=== PATIENT | female | born 1945 | race Caucasian/White ===

== ENCOUNTER → 2018-06-28 | Outpatient (CLI) | payer MEDICARE, OTHER | LOC: M.ULTRA 06-14 14:48 → M.RAD 08:37 | DX: Z12.31 Encounter for screening mammogram for malignant neoplasm of breast (principal); Z00.01 Encounter for general adult medical examination with abnormal findings; E04.1 Nontoxic single thyroid nodule; M81.0 Age-related osteoporosis without current pathological fracture; Z78.0 Asymptomatic menopausal state; Z90.89 Acquired absence of other organs ==

== ENCOUNTER → 2018-07-03 | Outpatient (CLI) | payer MEDICARE, OTHER | LOC: M.RAD 13:17 | DX: N63.24 Unspecified lump in the left breast, lower inner quadrant (principal); R92.2 Inconclusive mammogram ==

== ENCOUNTER → 2018-07-11 | Outpatient (CLI) | payer MEDICARE, OTHER ==
[~2018-07-11] MED LIST: ASPIRIN81 M2 PO; CALCIUM500 MG PO; CITRACAL + D M1 EACH PO; COREG6.25 MG PO; FISH OIL 1,001000 M2 PO; LIPITOR80 MG PO; LISINOPRIL40 MG PO; MAXZIDE-25 MG1 EACH PO; NORVASC10 MG PO; OMEPRAZOLE 20 M20 M1 PO; VITAMIN D1000 UNI1 PO
--- NOTE | 2018-07-21 16:09 | PATH ---
[address] [address] PATHOLOGY RPT PROCEDURE Name: АННА STEWART Room: [facility] HTIAGO Hubbard#: [id number] Admission: 07/11/18 Date of : 47 Discharge: Report #: [id number] Path Case #: [id number] [facility] Accession Number: [id number] . 01 Material submitted: . PART A: LEFT BREAST PART B: LEFT AXILLA NODE . 01 Clinical history: . A. 1.6 x 1.3 x 2.4 cm mass, 5:00, 6 cm (4 to 7cm) from nipple B. 1.7 x 1.5 x 0.94 cm mass . 02 Diagnosis: A. 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 SEE COMMENT. . B. Left axilla node, image guided core biopsies: - METASTATIC DUCTAL ADENOCARCINOMA, INTERMEDIATE GRADE, TYPICAL OF BREAST PRIMARY, SPANNING AT LEAST 11 MM. SEE COMMENT. QTP/07/13/2018 . 02 Comment: Specimen type: Image guided core biopsies Tumor site: Left breast, 5:00, 6 cm (4-7 cm) from nipple Tumor quantitation: Approximately 75% of submitted tissues Histologic type: Ductal adenocarcinoma Histologic grade: Intermediate grade (II/III) Tubules, nuclei and mitoses: 2, 2, 2 LVSI: Identified Microcalcifications: Not identified Markers: Breast tumor profile pending Block: A1 . In the left breast biopsy (A), focal ductal carcinoma in situ, low grade, cribriform and solid types is seen within and at the edges of the infiltrating tumor. Lymphovascular invasion is identified in A3. The left axilla node biopsies (B) show approximately 90% of the submitted tissues to be adenocarcinoma with minimal residual lymphoid tissue/lymph node seen at one edge in B3. No definite evidence of extranodal involvement is seen in specimen B. Breast tumor profile studies are pending on A1 and will be the subject of an addendum report. . Specimens A and B reviewed with Dr. Watson Hernandez who agrees with the diagnosis. . Scarlet Maradiaga ([facility] Breast Navigator) notified at approximately 1230 on 07/13/2018. [place] [address] PATHOLOGY RPT PROCEDURE Name: АННА STEWART Room: [facility] Hubbard#: [id number] Admission: 07/11/18 Date of : 47 Discharge: Report #: [id number] Path Case #: [id number] (MANDO:pit 07/13/2018) . 02 Addendum: . Special studies report received from [facility], [address] [place] [address], [address], [place], [address], on case [id number], labeled with their number [id number], dated 07/19/2018. . Breast/Prognostic Marker Analysis . Specimen Site: Left Breast, 5:00 (Biopsy), Infiltrating Ductal Adenocarcinoma Specimen ID #: [id number] . ER (Estrogen Receptor) Present/Positive Percent: 95.00% Analysis: Manual Comments: Staining Intensity: Strong. . MS (Progesterone Receptor) Present/Positive Percent: 90.00% Analysis: Manual Comments: Staining Intensity: Strong. . HER2 Not Over-Expressed Score: 1+ Analysis: Manual . Ki-67 High Proliferation Percent: 50.00% Analysis: Manual . Time to Fixation (Cold Ischemic Time): 6 minutes Duration of Fixation: 10 hours 8 minutes Type of Fixative: 10% Neutral Buffered Formalin . . at [employer]. Maximo Uribe M.D. Pathologist . Methodology The HER2 Receptor protein expression is analyzed using the [place] HER2 rabbit monoclonal antibody (clone 4B5). This assay is used for diagnostic determination of the HER2 protein over-expression in paraffin embedded, [place] [address] PATHOLOGY RPT PROCEDURE Name: АННА STEWART [id number] Admission: 11/06/18 Date of : 47 Discharge: Report #: [id number] Path Case #: [id number] formalin fixed breast cancer tissue on the [employer] (acquired by [employer]) Benchmark. The specimen is processed using a polymer detection system. The membrane staining of the tumor is determined either by manual score or image analysis. This antibody is intended for in vitro diagnostic use. The score is reported as per package insert; 0, 1+, 2+, and 3+. This test is used for clinical purposes. . A rabbit monoclonal antibody (clone SP1) that recognized the Estrogen Receptor is used to perform immunohistochemistry on routinely fixed (formalin) paraffin embedded tissue on the [place] Benchmark. The specimen is processed using a polymer detection system. The percentage of stained tumor nuclei is determined either manually or by image analysis. This test is intended for in vitro diagnostic use. This test is used for clinical purposes. . A rabbit monoclonal antibody (clone 1E2) that recognized the Progesterone Receptor is used to perform immunohistochemistry on routinely fixed (formalin) paraffin embedded tissue on the [place] Benchmark. The specimen is processed using a polymer detection system. The percentage of stained tumor nuclei is determined either manually or by image analysis. This test is intended for in vitro diagnostic use. This test is used for clinical purposes. . A rabbit monoclonal antibody (clone 30-9) that recognized Ki67 is used to perform immunohistochemistry on routinely fixed (formalin) paraffin embedded tissue on the [place] Benchmark. The specimen is processed using a polymer detection system. The percentage of stained tumor nuclei is determined either manually or by image analysis. This test is intended for in vitro diagnostic use. This test is used for clinical purposes. . Intended Use: This antibody is intended for in vitro diagnostic (IVD) use. HER2 (4B5) is a rabbit monoclonal antibody intended for the semi-quantitative detection of HER2 antigen in sections of formalin-fixed, paraffin embedded normal and neoplastic tissue. . This antibody is intended for in vitro diagnostic (IVD) use. Estrogen Receptor (ER) (SP1) is a rabbit monoclonal antibody (IgG) that is intended for the qualitative detection of estrogen receptor (ER) antigen in sections of formalin-fixed, paraffin-embedded tissue. ER is a rabbit monoclonal antibody that recognizes human estrogen receptor alpha. . This antibody is intended for in vitro diagnostic (IVD) use. Progesterone Receptor (MS) (1E2) is a rabbit monoclonal antibody (IgG) that is intended for the qualitative detection of progesterone receptor (MS) antigen in sections of formalin fixed, paraffin embedded tissue. MS is a rabbit monoclonal antibody that recognizes the A and B forms of the human progesterone receptor[place] [address] PATHOLOGY RPT PROCEDURE Name: АННА STEWART Room: [facility].#: [id number] Admission: 07/11/18 Date of : 47 Discharge: Report #: [id number] Path Case #: [id number] This antibody is intended for in vitro diagnostic (IVD) use. Ki-67 (30-9) is a rabbit monoclonal antibody (IgG) directed against C-terminal portion of Ki-67 antigen. Staining for Ki-67 can be used to aid in assessing the proliferative activity of normal and neoplastic tissue. Ki-67 is a nuclear protein expressed in proliferating cells. During the cell cycle, the Ki-67 antigen is present in the G1, S, G2 and M phase but is absent in the G0 (quiescent phase). . . Disclaimer This Test was performed by [employer] at [address], [place] [address], [place], [address]. . [facility] is a business unit of [employer]. a wholly-owned subsidiary of [employer]. . This assay has not been validated on decalcified tissues. Results should be interpreted with caution if this specimen was decalcified given the likelihood of false negativity on decalcified specimens. . Any image(s) that accompany this report is/are a sales utility representative image(s) only and should not be used to render a diagnosis. . This interpretation is contingent on the specimen and the clinical information received. . For any special tests/stains performed, known positive cells or tissues are tested with each marker and examined to ensure positivity. Positive and negative internal controls, if present, react appropriately. . This analysis is an adjunct to the evaluation of the referring physician and does not represent a final diagnosis. . The immunohistochemistry tests performed at [facility] [facility]. were validated on tissue fixed in 10% neutral buffered formalin. The performance characteristics of the tests performed on tissue processed in other fixatives is not known. . HER2 testing at [facility] is performed in compliance with the 2013 updated ASCO/CAP Clinical Practice Guidelines and Recommendations for HER2 testing in Breast Cancer. If the result is EQUIVOCAL (2+), it must be confirmed by an alternative assay such as FISH or Dual SOLANGE. REF: Madhu HENAO, et al. Recommendations for human epidermal growth factor receptor 2 testing in breast cancer: [place] Society of Clinical Oncology/College of [place] pathologists Clinical Practice Guideline Update. J Clin Oncol. 2013 Jul 06;31(31):6661-1392. . HER2 and ER/MS ASCO/CAP guidelines require [place] [address] PATHOLOGY RPT PROCEDURE Name: АННА STEWART Room: [facility] THIAGO Hubbard#: [id number] Admission: 07/11/18 Date of : 47 Discharge: Report #: [id number] Path Case #: [id number] formalin for a minimum of 6 and a maximum of 72 hours. Fixation times less than 6 hours may not adequately preserve cell proteins. Fixation times longer than 72 hours may cause excess cross-linking of proteins reducing the antigen available for staining. Either scenario can cause reduced staining; hence false negative results are possible and should be considered for these situations if the HER2 IHC score is less than 3+ or ER or MS is negative (no staining or <1% positive). It is recommended that specimens fixed longer than 72 hours with HER2 IHC scores less than 3+ be confirmed by HER2 FISH or Dual SOLANGE. The time from biopsy/excision to fixation in formalin (cold ischemic time) must be less than 1 hour. Time to fixation (cold ischemic time) greater than 1 hour should be interpreted with caution. HER2 testing, mainly HER2 by FISH, is particularly vulnerable since excessive cold ischemic time results in preferential loss of HER2 probe signals that may lead to false negative results. . SCORE STAINING PATTERN IN TUMOR CELLS INTERPRETATION RESULTS 0 No staining observed or incomplete, faint membrane staining in less than or equal to 10% of tumor cells. Negative 1+ Incomplete, faint membrane staining in greater than 10% of tumor cells. Negative 2+ Incomplete and/or weak/moderate circumferential membrane staining in greater than 10% of the invasive tumor cells or complete, circumferential, intense alternative assay staining in less than or equal to 10% of invasive tumor cells. Equivocal* *Must be confirmed by alternative assay (IHC/FISH/Dual SOLANGE) 3+ Intense, complete membrane staining in greater than 10% of tumor cells. Positive . A complete copy of the report is on file. . Professional and Technical services performed by [employer] at [address] [facility] [address], [place] [address]. . (AMJ 07/21/2018) . HQK/07/21/2018 Addendum Electronically Signed by Carmen Grove MD, Pathologist . 02 Electronically signed: . Nikko Muñoz MD, Pathologist NPI- [id number] . 01 [place] [address] PATHOLOGY RPT PROCEDURE Name: АННА STEWART Room: [facility]#: [id number] Admission: 07/11/18 Date of : 47 Discharge: Report #: [id number] Path Case #: [id number] Gross description: . A. Received in formalin labeled "Анна Stewart, left breast 5:00 6 + 7cm FN,"," are multiple needle cores of yellow-dunbar fibrofatty tissue measuring 2.6 x 1.6 x 0.5 cm in aggregate dimensions. The tissue submitted in its entirety in cassettes A1 through A3. The cold ischemic time is 6 minutes. The total formalin fixation time is 10 hours and 8 minutes. . B. received in formalin labeled "Анна Stewart left axilla node," are 3 distinct needle cores of coronado soft tissue ranging from 1.4 to 2.4 cm in length and measuring less than 0.1 cm each in diameter. The specimen is submitted entirely in cassettes B1 through B3. (TSD; 07/11/2018) TOB/TOB . 02 Pathologist provided ICD-10: C50.912, C77.3 . 02 CPT . 199432, 474655 Specimen Comment: A courtesy copy of this report has been sent to Specimen Comment: [phone], , . Specimen Comment: Report sent to ,DR PETERSON / DR MARADIAGA Specimen Comment: A duplicate report has been generated due to demographic updates. Performed at: 01 [facility] [address], [place], [place] [id number] MD Justino Parnell MD Phone: [phone] Performed at: [address] [facility] [address], [place], [place] [id number] MD Nikko Muñoz MD Phone: [phone]
== END | disposition home or self-care (01) ==
LOC: M.ULTRA 12:24
DX: C50.912 Malignant neoplasm of unspecified site of left female breast (principal); C77.3 Secondary and unspecified malignant neoplasm of axilla and upper limb lymph nodes; I12.9 Hypertensive chronic kidney disease with stage 1 through stage 4 chronic kidney disease, or unspecified chronic kidney disease; N18.3 Chronic kidney disease, stage 3 (moderate); I25.10 Atherosclerotic heart disease of native coronary artery without angina pectoris; E78.5 Hyperlipidemia, unspecified; G47.33 Obstructive sleep apnea (adult) (pediatric); E66.01 Morbid (severe) obesity due to excess calories; Z95.1 Presence of aortocoronary bypass graft; Z79.899 Other long term (current) drug therapy; Z79.82 Long term (current) use of aspirin; Z87.19 Personal history of other diseases of the digestive system; Z98.890 Other specified postprocedural states; Z82.49 Family history of ischemic heart disease and other diseases of the circulatory system; Z82.3 Family history of stroke; Z80.8 Family history of malignant neoplasm of other organs or systems; Z86.010 Personal history of colon polyps; Z87.891 Personal history of nicotine dependence; Z68.42 Body mass index [BMI] 45.0-49.9, adult

== ENCOUNTER → 2018-07-25 | Outpatient (CLI) | payer MEDICARE, OTHER ==
[2018-07-25 11:04] LABS: CREATININE 1.3 mg/dL (0.6-1.3)
== END ==
LOC: M.LAB 10:30 → M.MRI 11:30
PROVIDERS: Surgery
DX: N63.23 Unspecified lump in the left breast, lower outer quadrant (principal)

== ENCOUNTER → 2018-08-02 | Outpatient (CLI) | payer MEDICARE, OTHER ==
[~2018-08-02] MED LIST changes: +PERCOCET PO
--- NOTE | 2018-08-02 15:20 | 2DMMODE ---
[place] [address] 2 D/M-MODE ECHOCARDIOGRAM Name: TORSTEN CAMEJO Room: [facility]#: [id number] Admission: 08/02/18 Attend Phys: Abbi Pemberton MD Discharge: Date of : 47 Date of Service: 08/02/18 1519 Report #: [id number] THIS REPORT FOR: //name// APPROVED REPORT Study performed: 08/02/2018 13:37:23 EXAM: Limited 2D Echocardiogram Patient Location: Out-Patient Status: routine BSA: 2.20 HR: 61 bpm BP: 140/78 mmHg Other Information Study Quality: Fair Indications Pre-Chemo 2D Dimensions IVSd: 12.67 (7-11mm) LVDd: 47.11 mm PWd: 11.34 (7-11mm) LVDs: 31.90 (25-40mm) Aortic Root: 31.31 mm Left Ventricle The left ventricle is normal size. There is normal LV segmental wall motion. There is normal left ventricular wall thickness. The left ventricular systolic function is normal. The left ventricular ejection fraction is within the normal range. LVEF is 55-60%. Right Ventricle The right ventricle is normal size. Atria The left atrium size is normal. Aortic Valve Mild aortic valve sclerosis. Mitral Valve There [place] [address] 2 D/M-MODE ECHOCARDIOGRAM Name: TORSTEN CAMEJO Room: [facility]#: [id number] Admission: 08/02/18 Attend Phys: Abbi Pemberton MD Discharge: Date of : 47 Date of Service: 08/02/181518 Report #: [id number] Tricuspid Valve The tricuspid valve is normal in structure. <Conclusion> The left ventricle is normal size. There is normal left ventricular wall thickness. The left ventricular systolic function is normal. The left ventricular ejection fraction is within the normal range. LVEF is 55-60%. The left atrium size is normal. Mild aortic valve sclerosis. There is mitral annular calcification. There is normal LV segmental wall motion. <ELECTRONICALLY SIGNED> By: Levy Armando MD, FACC 08/02/181518 18 18 Levy Armando MD, FACC /INF
== END ==
LOC: M.CRD 13:19
DX: C50.012 Malignant neoplasm of nipple and areola, left female breast (principal); I35.8 Other nonrheumatic aortic valve disorders; Z17.0 Estrogen receptor positive status [ER+]

== ENCOUNTER → 2018-10-03 | Outpatient (CLI) | payer MEDICARE, OTHER | LOC: M.ULTRA 09:25 | DX: N63.23 Unspecified lump in the left breast, lower outer quadrant (principal); C50.512 Malignant neoplasm of lower-outer quadrant of left female breast; Z17.0 Estrogen receptor positive status [ER+] ==

== ENCOUNTER → 2018-12-05 | Outpatient (CLI) | payer MEDICARE, OTHER | LOC: M.ULTRA 10:22 | DX: C50.512 Malignant neoplasm of lower-outer quadrant of left female breast (principal); N63.23 Unspecified lump in the left breast, lower outer quadrant; Z17.0 Estrogen receptor positive status [ER+] ==

== ENCOUNTER → 2019-01-09 | Outpatient (CLI) | payer MEDICARE, OTHER ==
[~2019-01-09] MED LIST changes: +XARELTO20 MG PO
== END ==
LOC: M.MRI 11:12
DX: C50.912 Malignant neoplasm of unspecified site of left female breast (principal)

== ENCOUNTER 2019-01-24 08:01 | Observation (INO) | payer MEDICARE, OTHER ==
[2019-01-24 08:39] LABS: HEMATOCRIT 27.7 % (37.0-47.0); HEMOGLOBIN 9.1 gm/dL (12.0-15.0); MCH 30.8 pg (26.0-34.0); MCHC 32.7 g/dL (28.0-37.0); RBC 2.95 mil/uL (4.20-5.00); WBC 6.5 thou/uL (4.0-11.0)
[2019-01-24 08:43] LABS: CALCIUM 9.3 mg/dL (8.5-10.1); CREATININE 1.4 mg/dL (0.6-1.3); POTASSIUM 4.3 mmol/L (3.5-5.1)
[2019-01-24 08:48] LABS: ALBUMIN 3.5 g/dL (3.4-5.0); TOTAL BILIRUBIN 0.3 mg/dL (<0.1-1.0); TOTAL PROTEIN 7.2 g/dL (6.4-8.2)
--- NOTE | 2019-01-24 13:22 | EKG ---
[place] [address] ELECTROCARDIOGRAM REPORT Name: MARÍA CAMEJORIA NABIL Room: [facility]#: [id number] Admission: 01/24/19 Attend Phys: Lizzie Gordon MD Discharge: Date of : 47 Report #: [id number] THIS REPORT FOR: //name// [facility] Test Date: 2019-01-24 Test Time: 08:15:08 Pat Name: TORSTEN CAMEJO Department: Room: Gender: F [employer]: : 1945 Requested By: Lizzie Gordon Order Number: [id number] Faustino MD: Levy Armando Measurements Intervals [place] Rate: 58 P: 37 UT: 192 QRS: 66 QRSD: 111 T: 61 QT: 450 QTc: 443 Interpretive Statements Sinus rhythm Incomplete left bundle branch block Compared to ECG 08/04/2018 07:55:28 Left bundle-branch block now present Electronically Signed On 01-24-2019 13:21:56 CDT by Levy Armando [email or web address] <ELECTRONICALLY SIGNED> By: Levy Armando MD, [facility] 01/24/19 1321 Levy Armando MD, FAC /EPI
[2019-01-24 17:10] VITALS: BP 134/61
[2019-01-24 23:00] VITALS: BP 133/64
[2019-01-25] VITALS: BP 134/68
[2019-01-25 04:00] VITALS: BP 115/53
[2019-01-25 06:18] LABS: HEMATOCRIT 24.3 % (37.0-47.0); HEMOGLOBIN 8.1 gm/dL (12.0-15.0); MCH 31.4 pg (26.0-34.0); MCHC 33.3 g/dL (28.0-37.0); MCV 94.3 fL (80.0-100.0); MPV 8.2 fl. (7.2-11.1); RBC 2.58 mil/uL (4.20-5.00); RDW-CV 18.5 % (10.5-14.5); WBC 10.2 thou/uL (4.0-11.0)
[2019-01-25 06:42] LABS: CALCIUM 8.6 mg/dL (8.5-10.1); CREATININE 1.2 mg/dL (0.6-1.3); POTASSIUM 4.2 mmol/L (3.5-5.1)
[2019-01-25 08:00] VITALS: BP 120/53
--- NOTE | 2019-01-25 08:07 | OP ---
[address] [address] OPERATIVE REPORT Name: TORSTEN CAMEJO Room: [address] Rosa Maria Hubbard#: [id number] Admission: 01/24/19 Attend Phys: Lizzie Gordon MD Discharge: Date of : 47 Report #: [id number] THIS REPORT FOR: //name// CC: Joanne Gordon DATE OF SERVICE: 01/24/2019 PREOPERATIVE DIAGNOSIS: Left breast cancer, status post neoadjuvant chemotherapy. POSTOPERATIVE DIAGNOSIS: Acquired deformity, left breast. PROCEDURES: 1. Injection of blue dye. 2. Left breast needle localized lumpectomy. 3. Left axillary sentinel lymph node biopsy. 4. Full axillary dissection. 5. Local breast reconstruction using 4 x 4 cm local tissue flaps x 2. SURGEON: Lizzie Gordon MD SPRINKLER WORKER: APSEN Carreno ANESTHESIA: General anesthesia. ESTIMATED BLOOD LOSS: 25 mL. SPECIMENS REMOVED: 1. Left breast cancer, status post neoadjuvant chemotherapy. 2. Left breast new anterior superior margin, stitch luther new margin. 3. Left axillary sentinel lymph node #1, hot, blue, max count 5239. 4. Left axillary sentinel lymph node #2, not hot, not blue, questionable previously biopsied node. 5. Left axillary sentinel lymph node #3, not hot, not blue, confirmed previously biopsied node. 6. Left axillary contents. FINDINGS: Incision 5 cm in length, 10 cm from the nipple, 5 o'clock position, inframammary fold. [place] node #1 positive for malignant cells. Mammographic specimen of the primary specimen shows the clip in the mammographic specimen. Mammographic evaluation of sentinel node #2 did not show the appropriate clip within the specimen, did not proceed with mammographic confirmation of the clip in the biopsied node as we then proceeded with full axillary dissection. INDICATIONS: The patient is a 73-year-old female with imaging on 06/28 [place] [address] OPERATIVE REPORT Name: TORSTEN CAMEJO Room: [address] Rosa [place] Hubbard#: [id number] Admission: 01/24/19 Attend Phys: Lizzie Gordon MD Discharge: Date of : 47 Report #: [id number] 07/03/2018 showing a 2.1 cm irregular hypoechoic mass at the 6 o'clock left breast 6 cm from the nipple, an associated 1.7 cm abnormal appearing axillary lymph node was present as well. Biopsy of both of those on 07/11/2018 showed grade 2 invasive ductal carcinoma, ER/NH positive, HER-2 negative, Ki-67 of 50% with node positive disease. MRI on 07/25 confirmed a 2.1 cm primary lesion and two suspicious axillary lymph nodes. She underwent neoadjuvant chemotherapy. She had multiple complications throughout chemo, but ended up tolerating it overall. She still could not feel the mass. She had never been able to feel the mass. MRI post-neoadjuvant chemotherapy showed a significant decrease in size and enhancement of the spiculated mass in the breast, now measuring 1.2 cm. Interval improvement in appearance of the left axillary lymph nodes with now fairly normal appearance. Risks and benefits were discussed with the patient. She had desired breast conservation. Risks and benefits for lumpectomy and sentinel node biopsy and possible axillary dissection were discussed with the patient. It was discussed multiple times ahead of time that if any node returned as positive on her sentinel node biopsy that she would need a full axillary dissection. Risks and benefits for this were discussed with the patient and delineated in the H and P and she agreed to proceed. PROCEDURE IN DETAIL: The patient was brought to the operating room after informed consent had been obtained. She was placed under general anesthesia in the supine position with the left arm extended. A 5 mL of Lymphazurin blue was injected in the intradermal and subdermal location in the upper outer periareolar region of the left breast. The left breast and axilla were then prepped and draped in normal sterile manner. Prior to the procedure, she had been taken to ultrasound for wire localization of both the primary mass and the axillary lymph node. She was also taken to Nuclear Medicine for injection for the sentinel node portion of the case. Decision was made to proceed with an incision in the axillary and inframammary fold. Prior to all skin incisions, a combination of 1% lidocaine plain and 0.5% Marcaine with epinephrine was used. Skin incision in the inframammary fold was made with a knife. This was deepened into the subcutaneous tissues using the Bovie electrocautery. A path was created in the superficial plane toward the wire exit site or entrance site. Once the wire was identified, it was grasped with 2 hemostats and brought into the incision. The Bovie electrocautery was then used to excise the lump of tissue surrounding the pathway of the wire. Once completely removed, this was labeled for orientation purposes and handed off for mammographic evaluation. Mammogram did confirm that the clip and the lesion were within the specimen. I felt that this may be a little bit close on the anterior/superior margin. Therefore, the Allis clamp was used to grasp the region of tissue in the anterior/superior margin. It was grasped with the Allis clamp and Bovie electrocautery was used to excise a thin rim of tissue to encompass the new anterior/superior margin. The wound bed was then examined. It was noted to be adequately hemostatic. It was copiously irrigated with normal saline and a moistened Ray-Alla sponge was placed. Attention was then turned to the axilla. The site of highest activity on the axilla was marked out [place] [address] OPERATIVE REPORT Name: TORSTEN CAMEJO Room: [address] Rosa [place] Hubbard#: [id number] Admission: 01/24/19 Attend Phys: Lizzie Gordon MD Discharge: Date of : 47 Report #: [id number] skin incision was made in this region with a knife. This was deepened through the subcutaneous tissues using the Bovie electrocautery. The axillary fascia was divided. A Weitlaner retractor was placed and the [place] probe was used to direct dissection. Actually, there were blue lymphatics that were identified. These were traced to see if there was a superficial node associated. Then, the Pamela probe was used. In the region of high activity with a Pamela probe, a blue lymph node was identified. This was isolated with a combination of Ligaclip and Bovie electrocautery dissection. Once completely removed, counts were obtained and this was sent off as sentinel node #1. Attention was then redirected to the axilla. Attention was turned to the pathway of the wire. The Bovie electrocautery was used to track in the pathway of the wire. The wire actually obscured a fatty lymph node, but the wire continued through this fatty lymph node into the deeper chest wall and I was suspicious that this first lymph node removed did not actually represent the previously biopsied node; however, this was isolated with a combination of Ligaclip and Bovie electrocautery dissection. Once completely removed, the counts were obtained, it was not hot. This was sent for mammographic confirmation. The radiologist did say that there was a clip within this node, but this was a Hemoclip and not the previous biopsy clip. Attention was then redirected to the axilla. The wire was followed and there was a very firm suspicious feeling lymph node near the chest wall. This was isolated with a combination of blue clip and Bovie electrocautery dissection. Once removed, this was definitely assumed to have been the previously biopsied node. The wire terminated just distal of this node. I was in the process of sending this for mammographic evaluation when the frozen section returned on my first sentinel node stating that there were indeed malignancy involved in the lymph node. Therefore, I did not send that node for mammographic evaluation nor for a frozen section. The decision at that point was then made to proceed with full axillary dissection. The axillary incision was extended in an S-shaped manner using the knife after additional skin anesthesia. This was deepened into the subcutaneous tissues using the Bovie electrocautery. The axilla was dissected superficially toward the chest wall and superiorly toward the level of the axillary vein. Once the superficial tissues were dissected, dissection began coursing posteriorly in order to identify the axillary vein. Once the axillary vein was identified, all dissection was performed inferior to the level of the axillary vein. Once the axillary vein was identified, all dissection was completed using Metzenbaums and Ligaclips. Dissection continued in isolating lymphatic and vascular pedicles and ligating these with Ligaclips. Both the thoracodorsal and long thoracic nerves were identified and preserved along their course. The medial pectoral nerve was sacrificed. The dissection was completed serially until all tissue between the long thoracic and thoracodorsal nerves and superior to the axillary vein was ligated down to the posterior borders of the axilla. Once all contents were removed, these were labeled as axillary contents and handed off the field for permanent specimen. The axilla was copiously irrigated with normal saline. It was noted to be adequately hemostatic. A round fully fluted 15-[place] BELINDA drain was placed and trimmed to the appropriate length [place] [address] OPERATIVE REPORT Name: TORSTEN CAMEJO Room: [address] Rosa [place] Hubbard#: [id number] Admission: 01/24/19 Attend Phys: Lizzie Gordon MD Discharge: Date of : 47 Report #: [id number] axillary fascia was reapproximated with interrupted sutures of 3-0 Vicryl. The deep dermal layers were closed with interrupted 3-0 Vicryl sutures and skin was closed with 4-0 Monocryl in a subcuticular manner. Attention was then turned to the breast incision. Mobilization of the breast tissue in the superficial plane was performed inferiorly, medially and laterally in order to facilitate closure of the space from the lumpectomy site. The lumpectomy bed was marked with 4 Hemoclips for purposes of localizing the prior tumor. The tissue flaps were reapproximated with interrupted 3-0 Vicryl dyed sutures in order to close the created defect. The deep dermal layers were then closed with interrupted 3-0 Vicryl suture. Skin was closed with 4-0 Monocryl in a subcuticular manner. The drain was secured to the skin with 2-0 nylon suture. Tegaderm and Biopatch were used to cover the drain site. Both skin incisions were covered with Dermabond. The patient tolerated the procedure well. Sponge, lap and needle counts were correct x 2 at the end of the procedure. She was transferred to recovery in stable condition. <ELECTRONICALLY SIGNED> By: Lizzie Gordon MD 01/25/19 [id number] Gordon MD /nt
[2019-01-25 10:09] VITALS: BP 120/53
[2019-01-25] MEDS ORDERED: TRAMADOL 50 MG50 MG PO (10:23)
== END 2019-01-25 12:20 | disposition home or self-care (01) ==
LOC: M.SUR 08:01 → M.RAD 09:00 → M.SUR 09:00 → EDSTATUS 09:00 → M.SUR 15:30 → M.TBA 16:43 → M.3W 16:43
PROVIDERS: ADMIT Surgery
DX: C50.912 Malignant neoplasm of unspecified site of left female breast (principal); N64.89 Other specified disorders of breast

== ENCOUNTER → 2019-02-16 | Outpatient (CLI) | payer MEDICARE, OTHER ==
[~2019-02-16] MED LIST changes: +TRAMADOL 50 MG50 MG PO
== END ==
LOC: M.ULTRA 11:57
DX: M79.89 Other specified soft tissue disorders (principal); C50.512 Malignant neoplasm of lower-outer quadrant of left female breast; Z86.718 Personal history of other venous thrombosis and embolism

== ENCOUNTER → 2019-07-06 | Outpatient (CLI) | payer MEDICARE, OTHER | LOC: M.ULTRA 12:51 | DX: E04.1 Nontoxic single thyroid nodule (principal); E78.5 Hyperlipidemia, unspecified; I12.9 Hypertensive chronic kidney disease with stage 1 through stage 4 chronic kidney disease, or unspecified chronic kidney disease; N18.3 Chronic kidney disease, stage 3 (moderate); E66.01 Morbid (severe) obesity due to excess calories ==

== ENCOUNTER → 2019-08-15 | Outpatient (CLI) | payer MEDICARE, OTHER ==
[~2019-08-15] MED LIST changes: +FEMARA2.5 MG PO
== END ==
LOC: M.RAD 10:17
DX: C50.512 Malignant neoplasm of lower-outer quadrant of left female breast (principal); R92.1 Mammographic calcification found on diagnostic imaging of breast; Z17.0 Estrogen receptor positive status [ER+]

== ENCOUNTER → 2019-08-17 | Day surgery (SDC) | payer MEDICARE, OTHER ==
--- NOTE | ~2019-08-17 | OP ---
[address] [address] OPERATIVE REPORT Name: TORSTEN CAMEJO Room: [facility].#: [id number] Admission: 08/17/19 Attend Phys: Lizzie Gordon MD Discharge: Date of : 47 Report #: [id number] THIS REPORT FOR: //name// CC: Joanne Roberto Gordon DATE OF SERVICE: 08/17/2019 PREOPERATIVE DIAGNOSIS: Left breast cancer. POSTOPERATIVE DIAGNOSIS: Left breast cancer. PROCEDURE: Removal of right subclavian vein MediPort. SURGEON: Lizzie Gordon MD INFORMATION SYSTEMS SECURITY SPECIALIST: None. ANESTHESIA: MAC anesthesia. COMPLICATIONS: None. SPECIMENS: Port. DISPOSITION: Stable to PACU. INDICATIONS: The patient is a 74-year-old female with a diagnosis of a left breast cancer in 06/2018. She underwent neoadjuvant chemotherapy due to positive lymph nodes at that time, underwent lumpectomy and sentinel node biopsy and full axillary dissection in 01/2019. There were no additional adjuvant chemotherapy offered to her and Dr. Luevano had given her approval for port removal; therefore, risks and benefits for port removal were discussed with the patient and delineated in the H and P and she agreed to proceed. DESCRIPTION OF PROCEDURE: The patient was brought to the operating room after informed consent had been obtained. She was placed under MAC anesthesia in the supine position with her arms at her sides and placed in slight reverse Trendelenburg position. The right chest was prepped and draped in a normal sterile manner. Prior to skin incision, a combination of 1% lidocaine plain and 0.5% Marcaine plain was used. Her previous skin incision was incised with a knife. This was deepened into the subcutaneous tissues using the Bovie electrocautery. The capsule of the MediPort was incised with Bovie electrocautery. The MediPort was then removed from the pocket. A [id number] suture of 3-0 Vicryl was used to close the tubing tract. The deep dermal layers were closed with interrupted 3-0 Vicryl suture. Skin was closed with 4-0 Monocryl in a subcuticular manner. [place] [address] OPERATIVE REPORT Name: TORSTEN CAMEJO Room: [facility]#: [id number] Admission: 08/17/19 Attend Phys: Lizzie Gordon MD Discharge: Date of : 47 Report #: [id number] Dermabond dressing. The patient tolerated the procedure well. Sponge, lap and needle counts were correct x 2 at the end of procedure. She was transferred to recovery in a stable condition. By: [id number] Gordon MD /nt
[2019-08-17 06:59] LABS: HEMATOCRIT 29.6 % (37.0-47.0); HEMOGLOBIN 9.9 gm/dL (12.0-15.0); MCH 29.6 pg (26.0-34.0); MCHC 33.5 g/dL (28.0-37.0); MCV 88.1 fL (80.0-100.0); MPV 7.7 fl. (7.2-11.1); RBC 3.36 mil/uL (4.20-5.00); RDW-CV 15.2 % (10.5-14.5); WBC 4.8 thou/uL (4.0-11.0)
[2019-08-17 07:09] LABS: CREATININE 1.4 mg/dL (0.6-1.3); POTASSIUM 4.2 mmol/L (3.5-5.1)
== END | disposition home or self-care (01) ==
LOC: M.SUR 06:18
PROVIDERS: Surgery
DX: Z45.2 Encounter for adjustment and management of vascular access device (principal); C50.912 Malignant neoplasm of unspecified site of left female breast; Z98.890 Other specified postprocedural states; Z79.899 Other long term (current) drug therapy; Z88.8 Allergy status to other drugs, medicaments and biological substances

== ENCOUNTER → 2020-08-19 | Outpatient (CLI) | payer MEDICARE, OTHER | LOC: M.RAD 10:25 | PROVIDERS: ATTEND Radiology Radiation Oncology | DX: M81.0 Age-related osteoporosis without current pathological fracture (principal); Z79.52 Long term (current) use of systemic steroids; Z85.3 Personal history of malignant neoplasm of breast ==

== ENCOUNTER → 2021-01-21 | Outpatient (CLI) | payer MEDICARE, OTHER | LOC: M.ULTRA 11:30 | PROVIDERS: ATTEND Family Medicine | DX: E04.2 Nontoxic multinodular goiter (principal) ==

== ENCOUNTER → 2021-08-25 | Outpatient (CLI) | payer MEDICARE, OTHER | LOC: M.RAD 11:27 | PROVIDERS: ATTEND Radiology Radiation Oncology | DX: C50.512 Malignant neoplasm of lower-outer quadrant of left female breast (principal); Z17.0 Estrogen receptor positive status [ER+] ==